=== PATIENT | female | born 1940 | race African-American/Black ===

== ENCOUNTER 2018-12-12 13:46 | Outpatient (CLI) | payer MEDICARE, MEDICAID | END 2018-12-12 13:47 | disposition home or self-care (01) | LOC: ULT 13:46 | PROVIDERS: ATTEND Internal Medicine | DX: R01.1 Cardiac murmur, unspecified (principal); I35.0 Nonrheumatic aortic (valve) stenosis | CPT/HCPCS: 93306 ==

== ENCOUNTER 2019-04-12 12:14 | Inpatient (IN) | payer MEDICARE, MEDICAID ==
[2019-04-12 13:34] LABS: #Eosinphils 0.1 thou/uL (0.0-0.7); #Lymphocytes 2.2 thou/uL (1.20-3.40); #Monocytes 0.6 thou/uL (0.11-0.59); #Neutrophils 6.4 thou/uL (1.40-6.50); %Eosinophils 0.6 % (0.0-10.0); %Lymphocytes 23.5 % (21.0-51.0); %Monocytes 6.2 % (0.0-10.0); %Neutrophils 69.7 % (42.0-75.0); Hemoglobin 10.5 g/dL (12.0-16.0); Mean Corpuscular HGB CONC 32.6 g/dL (32.0-36.0); Mean Corpuscular Hemoglobin 30.1 pg (27.0-31.0); Mean Corpuscular Volume 92.3 fL (78.0-98.0); Mean Platelet Volume 7.9 fL (7.4-10.4); Platelet Count 289 thou/uL (130-400); RBC Distribution Width 13.8 % (11.5-14.5); Red Blood Cell (RBC) Count 3.48 mill/uL (4.20-5.40); White Blood Cell (WBC) Count 9.1 thou/uL (4.8-10.8)
[2019-04-12 13:57] LABS: ALT (SGPT) 10 U/L (8-55); AST (SGOT) 14 U/L (5-34); Albumin 3.6 g/dL (3.4-4.8); Alkaline Phosphatase 76 U/L (40-110); Anion Gap 13 mmol/L (10-20); BUN (Urea Nitrogen) 33 mg/dL (9.8-20.1); Bilirubin, Total 0.3 mg/dL (0.2-1.2); Calc. Creatinine Clearance 0 mL/min (70-130); Calcium 8.9 mg/dL (7.8-10.44); Carbon Dioxide 24 mmol/L (23-31); Chloride 108 mmol/L (98-107); Estimated GFR-MDRD 24; Globulin 3.3 g/dL (2.4-3.5); Glucose 102 mg/dL (83-110); Magnesium 2.2 mg/dL (1.6-2.6); Potassium 3.6 mmol/L (3.5-5.1); Protein, Total 6.9 g/dL (6.0-8.3); Sodium 141 mmol/L (136-145)
--- NOTE | 2019-04-12 14:21 | RAD ---
EXAM: Single view of the chest HISTORY: Cough COMPARISON: 09/08/2016 FINDINGS: Single view of the chest shows an enlarged but stable cardiomediastinal silhouette. Athero sclerotic calcifications in the aorta. There is no evidence of consolidation, mass, or pleural effusion. The bones are unremarkable. IMPRESSION: No evidence of acute cardiopulmonary disease
[2019-04-12 16:56] LABS: Troponin I 0.025 ng/mL (< 0.028)
[2019-04-12 17:14] VITALS: BMI 28.5
[2019-04-12] MEDS ORDERED: Ondansetron ODT 4 MG TAB SL PRN (17:15)
[2019-04-12] MEDS ORDERED: Acetaminophen 325 MG TAB PO PRN (17:15)
[2019-04-12] MEDS ORDERED: Ondansetron PF 4 MG/2 ML Vial IVP PRN (17:15)
[2019-04-12 19:57] LABS: Troponin I 0.013 ng/mL (< 0.028)
[2019-04-13] MEDS ORDERED: Guaifenesin DM 100-10/5 ML UDCUP PO PRN (00:04)
[2019-04-13] MEDS ORDERED: PROVENTIL INHALER 6.7 G (200 INHALATIONS) INH PRN (00:04)
[2019-04-13] MEDS ORDERED: Senokot S 8.6-50 MG TAB PO PRN (00:04)
[2019-04-13] MEDS ORDERED: Ondansetron PF 4 MG/2 ML Vial IVP PRN (00:04)
[2019-04-13] MEDS ORDERED: Bisacodyl 10 MG SUPP PR PRN (00:04)
--- NOTE | 2019-04-13 00:38 | HP ---
REASON FOR ADMISSION: Dizziness, acute kidney injury, bradycardia. HISTORY OF PRESENTING ILLNESS: The patient gives history of feeling very dizzy and she could not ambulate. She tried to take one or two steps, but felt very dizzy and had to sit. She normally uses a walker to ambulate in the house. She stays with her children. No chest pain, palpitation, PND, or orthopnea. No complaints of fever. She has dry cough, but no expectoration. No complaints of urinary symptoms. PAST MEDICAL AND SURGICAL HISTORY: Diastolic dysfunction, last echo done in November of 2018 showed ejection fraction of 55% to 60%; mild aortic stenosis; hypertension; chronic kidney disease stage 3; history of CVA with right hemiparesis; hypertension; ; tubal ligation; dyslipidemia. CURRENT MEDICATIONS: Please note, the patient does not recall all her medications. This needs to be ascertained in the morning from her pharmacy. Per prior records, the patient is on, 1. Allopurinol 100 mg p.o. daily. 2. Norvasc 5 mg p.o. at bedtime. 3. Aspirin 81 mg p.o. daily. 4. Plavix 75 mg p.o. daily. 5. Hydralazine 50 mg three times daily. 6. Isosorbide dinitrate 10 mg three times daily. 7. Lisinopril 10 mg daily. 8. Metoprolol, there are 2 dosings on the computer, one is 150 mg twice daily, another one is 25 mg twice daily. 9. Procardia XL 60 mg twice daily. 10. Crestor 20 mg daily. 11. VESIcare 10 mg daily. 12. Ventolin inhaler q.6 hourly p.r.n. ALLERGIES: NO KNOWN DRUG ALLERGIES. PERSONAL HISTORY: Does not abuse alcohol or drugs. No history of smoking. FAMILY HISTORY: Both parents are . She does not know the exact cause of their parents . CODE STATUS: Full. Power of assistant district attorney is her daughter, Ms. Mayes. REVIEW OF SYSTEMS: CONSTITUTIONAL: Negative for weight loss or gain, ability to conduct usual activities. SKIN: Negative for rash, itching. EYES: Negative for double vision, pain. ENT/MOUTH: Negative for nose bleeding, neck stiffness, pain, tenderness. CARDIOVASCULAR: Negative for palpitations, dyspnea on exertion, orthopnea. RESPIRATORY: Negative for shortness of breath, wheezing, cough, hemoptysis, fever or night sweats. GASTROINTESTINAL: Negative for poor appetite, abdominal pain, heartburn, nausea , vomiting, constipation, or diarrhea. GENITOURINARY: Negative for urgency, frequency, dysuria, nocturia. MUSCULOSKELETAL: Negative for pain, swelling. NEUROLOGIC/PSYCHIATRIC: Negative for anxiety, depression. ALLERGY/IMMUNOLOGIC: Negative for skin rash, bleeding tendency. PHYSICAL EXAMINATION: GENERAL: The patient is a 78-year-old female, who is currently not in any acute distress and is not dizzy at present. VITAL SIGNS: Blood pressure 146/70; pulse 54 per minute, it is dropped down to 38 on telemetry; respiratory rate 20 per minute; temperature 98.4 degrees Fahrenheit; saturating 97% on room air. NECK: Supple. No elevated JVD. HEENT: Eyes; extraocular muscles intact. Pupils reacting to light. Oral cavity, mucous membranes are moist. No exudates or congestion. The patient has no teeth nor does she have any dentures. CARDIOVASCULAR: S1, S2 heard. Bradycardic. No murmur. RESPIRATORY: Air entry 1+ bilateral. No rales or rhonchi. ABDOMEN: Soft. Bowel sounds heard. No tenderness, rigidity, or guarding. EXTREMITIES: Mild peripheral edema. No calf tenderness. VASCULAR: Peripheral pulses 1+ bilateral. No ischemic ulcerations or gangrene. CENTRAL NERVOUS SYSTEM: The patient has chronic right hemiparesis with strength of around 2 to 3/5. She has flexion contracture of her fingers in the right hand. She is able to lift her left lower extremity above the bed to 30 degrees and hold it for at least 10 seconds. No gross focal deficits noted. The patient is alert, awake , and oriented well. PSYCHIATRIC: The patient's mood is euthymic. No hallucinations or delusions. LABORATORY DATA: White count of 9, H and H 10 and 32, platelet count 289, MCV is 92 with 69% neutrophils. Electrolytes are stable. BUN 33, creatinine 2.3. Troponin x3 negative. Liver enzymes within normal limits. Albumin is 3.6. Chest x-ray done shows no acute cardiopulmonary abnormalities. EKG done shows sinus bradycardia at 51 beats per minute. There is Q-wave seen in V1, V2, V3. There is also T inversion seen in V3 to V6, II, III, and aVF as well. CLINICAL IMPRESSION AND PLAN: The patient will be under observation on telemetry for dizziness with acute kidney injury, likely [id number] dehydration. No complaints of diarrhea. She is also bradycardic with pulse going down to 38 per minute on tele monitor. She has EKG changes from V3 to V6, T inversions, and the inferior wall leads as well. In view of EKG changes and bradycardia, we will consult Cardiology. I am not sure if the patient is a candidate for angiogram given her chronic kidney disease and acute kidney injury at present. We will hold off on her Lopressor for now. We will continue Norvasc, aspirin, Plavix, hydralazine, and isosorbide dinitrate for now. She will be gently hydrated with normal saline at 70 mL/hour. Crestor will be continued at 20 mg/hour. The patient does not have any clinical symptoms of chest pain, palpitations, PND, or orthopnea at present. PT evaluation will be requested to ambulate her to see if she is still dizzy on ambulation. Job ID: [id number] [facility]
[2019-04-13] MEDS: Sodium Chloride 0.9% 1,000 ML IV SCH ×2 (02:10→16:49)
[2019-04-13 05:03] LABS: #Eosinphils 0.1 thou/uL (0.0-0.7); #Lymphocytes 2.6 thou/uL (1.20-3.40); #Monocytes 0.6 thou/uL (0.11-0.59); #Neutrophils 3.7 thou/uL (1.40-6.50); %Basophils 0.7 % (0.0-1.0); %Lymphocytes 36.7 % (21.0-51.0); %Monocytes 8.1 % (0.0-10.0); %Neutrophils 53.5 % (42.0-75.0); Mean Corpuscular Hemoglobin 29.7 pg (27.0-31.0); Mean Corpuscular Volume 92.9 fL (78.0-98.0); Mean Platelet Volume 7.8 fL (7.4-10.4); Platelet Count 243 thou/uL (130-400); Red Blood Cell (RBC) Count 3.37 mill/uL (4.20-5.40)
[2019-04-13 05:20] LABS: Albumin 3.4 g/dL (3.4-4.8); Anion Gap 11 mmol/L (10-20); BUN (Urea Nitrogen) 32 mg/dL (9.8-20.1); BUN/Creatinine Ratio 15.69; Calc. Creatinine Clearance 26 mL/min (70-130); Calcium 8.6 mg/dL (7.8-10.44); Carbon Dioxide 24 mmol/L (23-31); Chloride 110 mmol/L (98-107); Estimated GFR-MDRD 29; Glucose 85 mg/dL (83-110); Phosphorus 3.3 mg/dL (2.3-4.7); Potassium 3.2 mmol/L (3.5-5.1); Sodium 142 mmol/L (136-145)
[2019-04-13] MEDS: hydrALAZINE 25 MG TAB PO SCH ×3 (06:07→20:04)
[2019-04-13] MEDS ORDERED: Prevnar 13-Val Conj/PF 0.5 ML SYRINGE IM ONE (09:00)
[2019-04-13] MEDS: Isosorbide Dinitrate 5 MG TAB PO SCH ×3 (09:01→20:03)
[2019-04-13] MEDS: Clopidogrel Bisulfate 75 MG TAB PO SCH (09:01)
[2019-04-13] MEDS: Trospium 20 MG TAB PO SCH (09:01)
[2019-04-13] MEDS: Aspirin Chewable 81 MG TAB PO SCH (09:01)
[2019-04-13] MEDS: Allopurinol 100 MG TAB PO SCH (09:01)
[2019-04-13] MEDS: Enoxaparin Sodium 30 MG/0.3 ML SYRINGE SC SCH (09:01)
[2019-04-13] MEDS: Rosuvastatin 20 MG TAB PO SCH (09:01)
--- NOTE | 2019-04-13 13:36 | CON ---
DATE OF CONSULTATION: REASON FOR CONSULTATION: Dizziness, lightheadedness, and syncope. PRIMARY ASSISTANT AT SURGERY: Christian Rosado MD HISTORY OF PRESENT ILLNESS: Ms. Higuera is a 78-year-old woman with past history of chronic kidney disease, who recently presented with loss of consciousness. The history was obtained from her daughter. She does have underlying dementia. Her daughter states she was in her normal state of health when she began staring off. She states she was foaming at the mouth and her eyes rolled back. She thought she was having another stroke. She had difficulty getting words out. She then pressed the button around her neck. She then slowly came to. EMS was summoned and brought the patient to the emergency room. The daughter states she has also had increased shortness of breath present. No chest pain, pressure, or other associated symptoms. PAST MEDICAL HISTORY: Diastolic dysfunction, mild aortic stenosis, hypertension, chronic kidney disease, CVA, hypertension, BTL, and hyperlipidemia. HOME MEDICATIONS: Include: 1. Allopurinol. 2. Norvasc. 3. Aspirin. 4. Plavix. 5. Hydralazine. 6. Isosorbide. 7. Lisinopril. 8. Metoprolol 150 mg b.i.d. 9. Procardia XL 60 b.i.d. 10. Crestor. 11. VESIcare. ALLERGIES: NONE. FAMILY HISTORY: Negative for CAD. REVIEW OF SYSTEMS: Ten-point review of systems is reviewed and as above, otherwise negative. PHYSICAL EXAMINATION: GENERAL: Patient is a pleasant 78-year-old woman, difficulty with history from the patient. She easily gets confused. VITAL SIGNS: Blood pressure 135/80, pulse 66, and temperature 97.4. NEUROLOGIC: The patient is alert and oriented x3 with no focal neurologic deficits. HEENT: Sclerae without icterus. Mouth has moist mucous membranes with normal pallor. NECK: No JVD. Carotid upstroke brisk. No bruits bilaterally. LUNGS: Clear to auscultation with unlabored respirations. BACK: No scoliosis or kyphosis. CARDIAC: Regular rate and rhythm with normal S1 and S2. No S3 or S4 noted. No significant rubs, murmurs, thrills, or gallops noted throughout the precordium. PMI is not displaced. There is no parasternal heave. ABDOMEN: Soft, nontender, nondistended. No peritoneal signs present. No hepatosplenomegaly. No abnormal striae. EXTREMITIES: 2+ femoral and 2+ dorsalis pedis pulses. No cyanosis, clubbing, or edema. SKIN: No gross abnormalities. PERTINENT LABORATORY DATA: Troponin negative. EKG shows normal sinus rhythm with inverted T-waves. Initial creatinine 2.34, down to 2.04. IMPRESSION: 1. Syncope and loss of consciousness. 2. Bradycardia. 3. Chronic kidney disease. 4. Shortness of breath. RECOMMENDATIONS: The patient's symptoms may be related to bradycardia. The patient was on a high dose of metoprolol. This has been discontinued. Heart rate has been stable. Her CKs and troponins have been negative. She does have EKG changes and we will need to compare to old EKG. I would like to monitor overnight. We would recommend echo with Doppler to reassess LVEF. Job ID: [id number]
[2019-04-13] MEDS ORDERED: Potassium Chloride 20 MEQ TAB PO SCH (15:45)
--- NOTE | 2019-04-13 15:48 | PRG ---
DATE OF SERVICE: 04/13/2019 SUBJECTIVE: The patient is seen and examined at the bedside. The patient's daughter is present in the room during my visit. The whole information is taken from both the patient and the daughter about the event which happened at home. OBJECTIVE: VITAL SIGNS: Blood pressure is 177/85, pulse is 66, respiratory rate is 20. HEENT: Head is atraumatic and normocephalic. Eyes are PERRLA. Sclerae are nonicteric. Conjunctivae are pinkish. Oral mucosa is moist. She is edentulous. LUNGS: Bilateral rales and some wheezes present. HEART: S1, S2 normal. There is a systolic murmur at the right sternal border 2 to 3/6. ABDOMEN: Soft, nontender, nondistended. Obese. EXTREMITIES: Trace of peripheral edema similar bilaterally on both lower extremities. NEUROLOGIC: She is an alert and oriented x2. She has some motor deficit especially in the right lower extremity from the previous stroke, which is 4/5 and very residual deficit in the right upper extremity, which is almost the same as the left side. LABORATORY DATA: Labs showed white count of 7.0, hemoglobin 10.0, hematocrit 31.3, platelet count is 243,000. Sodium of 142, potassium 3.2, chloride 110, CO2 of 24 BUN 32, creatinine 2.04. IMPRESSION: 1. Syncope versus seizure. 2. Bradycardia most likely related to her home beta-demond use. 3. Renal insufficiency which is acute on chronic. 4. Hypokalemia. 5. Diastolic dysfunction. 6. Hypertension. 7. History of cerebrovascular accident with residual right hemiparesis. 8. Dyslipidemia. PLAN: Increase amlodipine to 10 mg at bedtime since her lisinopril was stopped and beta-demond was stopped. She had a viral illness of her upper respiratory tract a couple of weeks ago and she started wheezing and coughing, so we will keep her on DuoNebs 4 times a day and keep her on guaifenesin q.4 hours scheduled. Her renal insufficiency improved. Her creatinine is down to 2.04 from 2.34 yesterday. Also, she has normocytic anemia, which is chronic. Cardiology is going to make decision about further recommendations. We will get echocardiogram on her and continue PT and follow her anemia and kidney function levels. Job ID: [id number]
[2019-04-13] MEDS: Guaifenesin DM 100-10/5 ML UDCUP PO SCH ×3 (16:47→23:12)
[2019-04-13] MEDS: PROVENTIL INHALER 6.7 G (200 INHALATIONS) INH SCH ×2 (19:29→19:41)
[2019-04-13] MEDS ORDERED: Amlodipine 5 MG TAB PO SCH (21:00)
[2019-04-13] MEDS ORDERED: Amlodipine 10 MG TAB PO SCH (21:00)
[2019-04-14] MEDS: Guaifenesin DM 100-10/5 ML UDCUP PO SCH ×5 (04:22→21:00)
[2019-04-14 04:52] LABS: #Eosinphils 0.1 thou/uL (0.0-0.7); #Lymphocytes 2.6 thou/uL (1.20-3.40); #Monocytes 0.4 thou/uL (0.11-0.59); #Neutrophils 4.6 thou/uL (1.40-6.50); %Basophils 0.2 % (0.0-1.0); %Lymphocytes 33.5 % (21.0-51.0); %Monocytes 5.8 % (0.0-10.0); %Neutrophils 59.5 % (42.0-75.0); Hemoglobin 9.3 g/dL (12.0-16.0); Mean Corpuscular HGB CONC 31.8 g/dL (32.0-36.0); Mean Corpuscular Hemoglobin 29.4 pg (27.0-31.0); Mean Corpuscular Volume 92.5 fL (78.0-98.0); Mean Platelet Volume 7.4 fL (7.4-10.4); Platelet Count 228 thou/uL (130-400); Red Blood Cell (RBC) Count 3.17 mill/uL (4.20-5.40); White Blood Cell (WBC) Count 7.7 thou/uL (4.8-10.8)
[2019-04-14 05:12] LABS: Anion Gap 10 mmol/L (10-20); BUN (Urea Nitrogen) 24 mg/dL (9.8-20.1); Calc. Creatinine Clearance 29 mL/min (70-130); Calcium 8.5 mg/dL (7.8-10.44); Carbon Dioxide 21 mmol/L (23-31); Chloride 110 mmol/L (98-107); Estimated GFR-MDRD 32; Glucose 114 mg/dL (83-110); Potassium 3.4 mmol/L (3.5-5.1); Sodium 138 mmol/L (136-145)
[2019-04-14] MEDS: Trospium 20 MG TAB PO SCH (08:51)
[2019-04-14] MEDS: hydrALAZINE 25 MG TAB PO SCH ×3 (08:51→20:57)
[2019-04-14] MEDS: Enoxaparin Sodium 30 MG/0.3 ML SYRINGE SC SCH (08:51)
[2019-04-14] MEDS: Allopurinol 100 MG TAB PO SCH (08:51)
[2019-04-14] MEDS: Rosuvastatin 20 MG TAB PO SCH (08:51)
[2019-04-14] MEDS: Clopidogrel Bisulfate 75 MG TAB PO SCH (08:51)
[2019-04-14] MEDS: Isosorbide Dinitrate 5 MG TAB PO SCH ×3 (08:51→20:57)
[2019-04-14] MEDS: Aspirin Chewable 81 MG TAB PO SCH (08:52)
[2019-04-14] MEDS ORDERED: Amlodipine 5 MG TAB PO SCH (09:15)
--- NOTE | 2019-04-14 09:21 | PDOC.HOSPP ---
- Subjective Encounter Date: 04/14/19 Encounter Time: 09:18 Subjective: I'm scared to get up - Objective Vital Signs & Weight: Vital Signs (12 hours) Temp Pulse Resp BP BP BP BP 04/14/19 08:51 78 04/14/19 08:00 98.7 F 78 18 188/87 H 197/88 H 04/14/19 04:20 98.9 F 77 18 167/79 H 04/13/19 23:10 99.1 F 75 17 161/74 H BP Pulse Ox 04/14/19 08:51 04/14/19 08:00 201/93 H 98 04/14/19 04:20 98 04/13/19 23:10 95 Weight Weight 156 lb 6.4 oz I&O: 04/13/19 04/14/19 04/15/19 06:59 06:59 06:59 Intake Total 480 2140 Output Total 450 1300 Balance 30 840 Result Diagrams: 04/14/19 04:43 04/14/19 04:43 Hospitalist ROS - Medication Medications: Active Medications Generic Name Dose Route Start Last Admin Trade Name Juanq PRN Reason Stop Dose Admin Allopurinol 100 mg 04/13/19 09:00 04/14/19 08:51 Zyloprim PO 100 mg DAILY SENA Administration Aspirin 81 mg 04/13/19 09:00 04/14/19 08:52 Aspirin Chewable PO 81 mg DAILY SENA Administration Clopidogrel Bisulfate 75 mg 04/13/19 09:00 04/14/19 08:51 Plavix PO 75 mg DAILY SENA Administration Enoxaparin Sodium 30 mg 04/13/19 09:00 04/14/19 08:51 Lovenox SC 30 mg 0900 SENA Administration Guaifenesin/Dextromethorphan 15 ml 04/13/19 17:00 04/14/19 08:49 Robitussin Dm PO 15 ml Q4HR SENA Administration Hydralazine HCl 50 mg 04/13/19 09:00 04/14/19 08:51 Apresoline PO 50 mg TID SENA Administration Isosorbide Dinitrate 10 mg 04/13/19 09:00 04/14/19 08:51 Isordil PO 10 mg TID SENA Administration Rosuvastatin Calcium 20 mg 04/13/19 09:00 04/14/19 08:51 Crestor PO 20 mg DAILY SENA Administration Trospium 20 mg 04/13/19 09:00 04/14/19 08:51 Trospium PO 20 mg DAILY SENA Administration - Exam General Appearance: awake alert Neck: no JVD Heart: RRR, II/IV Respiratory - other findings: expiratory wheeZes, mild Gastrointestinal: soft, non-tender, normal bowel sounds Extremities: no edema Neurological - other findings: dense R hemiplegia, uses walker Hosp A/P (1) Dizziness Code(s): R42 - DIZZINESS AND GIDDINESS Status: Acute (2) Hypertension, uncontrolled Code(s): I10 - ESSENTIAL (PRIMARY) HYPERTENSION Status: Acute (3) CKD (chronic kidney disease) stage 3, GFR 30-59 ml/min Code(s): N18.3 - CHRONIC KIDNEY DISEASE, STAGE 3 (MODERATE) Status: Acute (4) Bradycardia Code(s): R00.1 - BRADYCARDIA, UNSPECIFIED Status: Acute - Plan cont off b-demond renaal fcn stable, reinstitute lisinopruil start aamlodipine supie, erect BPs ECHOcardiagram
[2019-04-14] MEDS: NIFEdipine XL 30 MG TAB PO SCH ×2 (09:48→20:58)
[2019-04-14] MEDS: Acetaminophen 325 MG TAB PO PRN ×2 (09:53→18:20)
[2019-04-14] MEDS: PROVENTIL INHALER 6.7 G (200 INHALATIONS) INH SCH ×3 (10:49→20:25)
[2019-04-15] MEDS: Guaifenesin DM 100-10/5 ML UDCUP PO SCH ×4 (01:20→13:25)
[2019-04-15] MEDS: PROVENTIL INHALER 6.7 G (200 INHALATIONS) INH SCH ×2 (07:35→11:04)
[2019-04-15 08:02] VITALS: TEMP 98.2
--- NOTE | 2019-04-15 08:05 | PDOC.HOSPP ---
- Subjective Encounter Date: 04/15/19 Encounter Time: 07:59 Subjective: no dizziness, sob, etc - Objective Vital Signs & Weight: Vital Signs (12 hours) Temp Pulse Resp BP BP BP Pulse Ox 04/15/19 04:00 98.5 F 96 16 153/73 H 95 04/14/19 20:58 95 154/75 H 04/14/19 20:57 95 154/75 H 04/14/19 20:00 99.1 F 103 H 18 176/72 H 96 Weight Weight 156 lb 6.4 oz I&O: 04/14/19 04/15/19 04/16/19 06:59 06:59 06:59 Intake Total 2140 2300 Output Total 1300 1800 Balance 840 500 Result Diagrams: 04/14/19 04:43 04/14/19 04:43 Hospitalist ROS - Medication Medications: Active Medications Generic Name Dose Route Start Last Admin Trade Name Freq PRN Reason Stop Dose Admin Acetaminophen 650 mg 04/13/19 00:04 04/14/19 18:20 Tylenol PO 650 mg Q4H PRN Administration Headache/Fever/Mild Pain (1-3) Albuterol Sulfate 2 puff 04/14/19 11:00 04/15/19 07:35 Proventil Hfa INH 1 puff QID-RT SENA Administration Allopurinol 100 mg 04/13/19 09:00 04/14/19 08:51 Zyloprim PO 100 mg DAILY SENA Administration Aspirin 81 mg 04/13/19 09:00 04/14/19 08:52 Aspirin Chewable PO 81 mg DAILY SENA Administration Clopidogrel Bisulfate 75 mg 04/13/19 09:00 04/14/19 08:51 Plavix PO 75 mg DAILY SENA Administration Enoxaparin Sodium 30 mg 04/13/19 09:00 04/14/19 08:51 Lovenox SC 30 mg 0900 SENA Administration Guaifenesin/Dextromethorphan 15 ml 04/13/19 17:00 04/15/19 05:17 Robitussin Dm PO 15 ml Q4HR SENA Administration Hydralazine HCl 50 mg 04/13/19 09:00 04/14/19 20:57 Apresoline PO 50 mg TID SENA Administration Isosorbide Dinitrate 10 mg 04/13/19 09:00 04/14/19 20:57 Isordil PO 10 mg TID SENA Administration Nifedipine 30 mg 04/14/19 09:00 04/14/19 20:58 Procardia Xl PO 30 mg BID SENA Administration Rosuvastatin Calcium 20 mg 04/13/19 09:00 04/14/19 08:51 Crestor PO 20 mg DAILY SENA Administration Trospium 20 mg 04/13/19 09:00 04/14/19 08:51 Trospium PO 20 mg DAILY SENA Administration - Exam General Appearance: awake alert Neck: no JVD Heart: RRR, no murmur Respiratory: CTAB Gastrointestinal: soft, normal bowel sounds Extremities: no edema Hosp A/P (1) Dizziness Code(s): R42 - DIZZINESS AND GIDDINESS Status: Resolved (2) Hypertension, uncontrolled Code(s): I10 - ESSENTIAL (PRIMARY) HYPERTENSION Status: Chronic (3) CKD (chronic kidney disease) stage 3, GFR 30-59 ml/min Code(s): N18.3 - CHRONIC KIDNEY DISEASE, STAGE 3 (MODERATE) Status: Chronic (4) Bradycardia Code(s): R00.1 - BRADYCARDIA, UNSPECIFIED Status: Resolved - Plan discuss with cardiology probable DC
[2019-04-15] MEDS ORDERED: Lisinopril 10 MG TAB PO SCH (09:00)
[2019-04-15] MEDS: Allopurinol 100 MG TAB PO SCH (09:19)
[2019-04-15] MEDS: Isosorbide Dinitrate 5 MG TAB PO SCH (09:20)
[2019-04-15] MEDS: Aspirin Chewable 81 MG TAB PO SCH (09:20)
[2019-04-15] MEDS: Clopidogrel Bisulfate 75 MG TAB PO SCH (09:20)
[2019-04-15] MEDS: Enoxaparin Sodium 30 MG/0.3 ML SYRINGE SC SCH (09:20)
[2019-04-15] MEDS: hydrALAZINE 25 MG TAB PO SCH (09:20)
[2019-04-15] MEDS: Rosuvastatin 20 MG TAB PO SCH (09:21)
[2019-04-15] MEDS: Trospium 20 MG TAB PO SCH (09:21)
[2019-04-15] MEDS: NIFEdipine XL 30 MG TAB PO SCH (09:21)
[2019-04-15 13:51] VITALS: BP 131/66
--- NOTE | 2019-04-16 03:42 | DIS ---
DATE OF ADMISSION: 04/14/2019 DATE OF DISCHARGE: 04/15/2019 PRIMARY CARE PROVIDER: Júnior Resendiz MD DISPOSITION: Discharged to home. FINAL DIAGNOSES: 1. Dizziness. 2. Sinus bradycardia related to beta blockers. 3. Chronic kidney disease, stage 3. 4. Hypertension. 5. Dyslipidemia. DISCHARGE MEDICATIONS: 1. VESIcare 10 mg a day. 2. Ventolin inhaler one puff p.r.n. 3. Crestor 20 mg a day. 4. Allopurinol 100 mg a day. 5. Lisinopril 10 mg a day. 6. Plavix 75 mg a day. 7. Isosorbide 10 mg t.i.d. 8. Hydralazine 50 mg p.o. t.i.d. 9. Aspirin 81 mg a day. 10. Nifedipine 30 mg p.o. b.i.d. ALLERGIES: NO KNOWN DRUG ALLERGIES. MEDICATIONS HELD: 1. Metoprolol 150 p.o. b.i.d. 2. Norvasc. CODE STATUS: Full resuscitation. DIET: Heart healthy. PENDING AT TIME OF DISCHARGE: Nothing. HOSPITAL COURSE: The patient admitted to [facility] with dizziness and bradycardia. The patient was on high doses of metoprolol, this was stopped. Cardiology consultation was obtained with Dr. Matt Barker, vector control assistant for Dr. Christian Rosado. The patient's bradycardia and dizziness resolved without further intervention. Echocardiogram was done, which revealed a 50% to 55% EF. PERTINENT LABORATORY DATA: CBC; white count 9.1, hemoglobin 10.5, and platelet count 289,000. Initial creatinine 2.34 and final 1.85 consistent with chronic kidney disease, stage 3, borderline for stage 4. Sodium 141, final 138. Potassium 3.6, final 3.4. PHYSICAL EXAMINATION: The patient's vital signs at time of discharge; blood pressure 151/80, pulse 90, and respirations 24. DISCHARGE INSTRUCTIONS: She is being discharged for followup with Dr. Resendiz in [address] Rosado is willing to see her in followup if desired. Pertinent information about this patient other than dealing with the present illness is the presence of a remote stroke with a right severe hemiplegia. Job ID: [id number]
--- NOTE | 2019-04-16 05:40 | PQF ---
MARC TA, ALEKNAGIK Esperanza FITCH [id number] [facility]-241 [id number] CLINICAL DOCUMENTATION CLARIFICATION FORM: POST DISCHARGE Addendum to original discharge summary date: ____ Late entry note date: __ DATE: 04/16/2019 ATTN: Dr Rodriguez, [place] Please exercise your independent, professional judgment in responding to the clarification form. Clinical indicators are provided on the bottom of this form for your review In your clinical opinion based on clinical findings below, can you plesae specify condition as the reason for Inpatient admission if due to: Please check appropriate box(s): [ ] ESSIE [ ] Bradycardia due to Overdose of Metropolol [ x ] Bradycardia due to adverse effect of Metropolol [ ] Other diagnosis [ ] Unable to determine In addition, please specify: Present on Admission (POA): [x ] Yes [ ] No [ ] Unable to determine For continuity of documentation, please document condition throughout progress notes and discharge summary. Thank You. CLINICAL INDICATORS - SIGNS / SYMPTOMS / LABS Laboratory chemistry 04/12 BUN 33, Creatinine 2.34 H&P p1 04/12 Dr Emerson The patient gives history of feeling very dizzy and she could not ambulate H&P p1 04/12 Dr Emerson She tried to take one or two steps, but felt dizzy and had to sit H&P p3 04/12 Dr Soler patient will be under observation on telemetry for dizziness with acute kidney injurt likely [id number] dehydration H&P p3 04/12 Dr Emerson She is also bradycardic with pulse going down to 38 per minute RISK FACTORS H&P p1 04/12 - Hypertension H&P p1 04/12 - CKD 3 H&P p1 04/12 - history of CVA PN p1 04/13 Bradycardia related to high dose beta-demond use TREATMENTS: H&P p3 04/12 Gently hydration with normal saline at 70ml.hr H&P p3 04/12 will hold off on her beta-demond (This form is maintained as a part of the permanent medical record) 2014 [employer], [employer]. All Rights Reserved [email or web address]
== END 2019-04-15 15:27 | disposition home or self-care (01) | DRG 309 ==
LOC: ERS 12:14 → 2SW 15:33 → OBSVTOIN 04-14 11:36
PROVIDERS: ADMIT Internal Medicine; ATTEND Internal Medicine
DX: R00.1 Bradycardia, unspecified (principal); N17.9 Acute kidney failure, unspecified; I69.351 Hemiplegia and hemiparesis following cerebral infarction affecting right dominant side; E86.0 Dehydration; N18.3 Chronic kidney disease, stage 3 (moderate); I12.9 Hypertensive chronic kidney disease with stage 1 through stage 4 chronic kidney disease, or unspecified chronic kidney disease; F03.90 Unspecified dementia, unspecified severity, without behavioral disturbance, psychotic disturbance, mood disturbance, and anxiety; E78.5 Hyperlipidemia, unspecified; D63.1 Anemia in chronic kidney disease; R42 Dizziness and giddiness; T44.7X5A Adverse effect of beta-adrenoreceptor antagonists, initial encounter; Z79.899 Other long term (current) drug therapy; Z79.82 Long term (current) use of aspirin; Z79.02 Long term (current) use of antithrombotics/antiplatelets
CPT/HCPCS: 36415; 36416; 71045; 80048; 80053; 80069; 83735; 84484; 85025; 93005; 93306; 94640; J1650; J7620

== ENCOUNTER 2020-09-14 08:36 | Inpatient (IN) | payer MEDICARE, MEDICAID ==
[2020-09-14] MEDS ORDERED: Iopamidol-370 76% 500 ML 1 ML ONE (09:29)
[2020-09-14 09:35] LABS: #Basophils 0.1 thou/uL (0.0-0.2); #Eosinphils 0.1 thou/uL (0.0-0.7); #Lymphocytes 2.3 thou/uL (1.20-3.40); #Monocytes 0.5 thou/uL (0.11-0.59); #Neutrophils 4.3 thou/uL (1.40-6.50); %Basophils 1.2 % (0.0-1.0); %Eosinophils 1.9 % (0.0-10.0); %Lymphocytes 31.3 % (21.0-51.0); %Monocytes 6.6 % (0.0-10.0); Hemoglobin 10.5 g/dL (12.0-16.0); Mean Corpuscular HGB CONC 32.2 g/dL (32.0-36.0); Mean Corpuscular Hemoglobin 31.3 pg (27.0-31.0); Mean Corpuscular Volume 97.2 fL (78.0-98.0); Mean Platelet Volume 7.7 fL (7.4-10.4); Platelet Count 341 thou/uL (130-400); RBC Distribution Width 14.2 % (11.5-14.5); Red Blood Cell (RBC) Count 3.36 mill/uL (4.20-5.40); White Blood Cell (WBC) Count 7.2 thou/uL (4.8-10.8)
[2020-09-14 09:56] LABS: ALT (SGPT) 8 U/L (8-55); AST (SGOT) 16 U/L (5-34); Albumin 4.3 g/dL (3.4-4.8); Alkaline Phosphatase 77 U/L (40-110); Anion Gap 18 mmol/L (10-20); BUN (Urea Nitrogen) 28 mg/dL (9.8-20.1); Bilirubin, Total 0.3 mg/dL (0.2-1.2); Calc. Creatinine Clearance 0 mL/min (70-130); Calcium 10.3 mg/dL (7.8-10.44); Carbon Dioxide 15 mmol/L (23-31); Chloride 110 mmol/L (98-107); Globulin 3.7 g/dL (2.4-3.5); Glucose 79 mg/dL (83-110); Potassium 4.1 mmol/L (3.5-5.1); Sodium 139 mmol/L (136-145)
[2020-09-14 13:13] LABS: Troponin I Less than 0.010 ng/mL (< 0.028)
[2020-09-14] MEDS ORDERED: Nitroglycerin 0.4 MG TAB (25 Tab Bottle) SL PRN (15:44)
[2020-09-14] MEDS ORDERED: Ondansetron ODT 4 MG TAB PO PRN (15:44)
[2020-09-14] MEDS ORDERED: Ondansetron PF 4 MG/2 ML Vial IVP PRN (15:44)
[2020-09-14] MEDS ORDERED: hydrALAZINE 20 MG/ML VIAL SLOW IVP PRN (15:44)
[2020-09-14 16:03] LABS: Troponin I Less than 0.010 ng/mL (< 0.028)
[2020-09-14] MEDS: Famotidine 20 MG TAB PO SCH (20:18)
[2020-09-14] MEDS: hydrALAZINE 25 MG TAB PO SCH (20:19)
[2020-09-14] MEDS: NIFEdipine XL 30 MG TAB PO SCH (20:22)
[2020-09-14] MEDS: Isosorbide Dinitrate 5 MG TAB PO SCH (20:22)
[2020-09-14] MEDS: Rosuvastatin 20 MG TAB PO SCH (20:22)
[2020-09-14] MEDS: Trospium 20 MG TAB PO SCH (20:23)
[2020-09-15 05:19] LABS: #Basophils 0.1 thou/uL (0.0-0.2); #Eosinphils 0.2 thou/uL (0.0-0.7); #Lymphocytes 2.1 thou/uL (1.20-3.40); #Monocytes 0.6 thou/uL (0.11-0.59); #Neutrophils 4.5 thou/uL (1.40-6.50); %Basophils 0.7 % (0.0-1.0); %Eosinophils 2.3 % (0.0-10.0); %Lymphocytes 28.5 % (21.0-51.0); %Monocytes 8.3 % (0.0-10.0); %Neutrophils 60.2 % (42.0-75.0); Hemoglobin 10.2 g/dL (12.0-16.0); Mean Corpuscular HGB CONC 33.7 g/dL (32.0-36.0); Mean Corpuscular Hemoglobin 32.3 pg (27.0-31.0); Mean Corpuscular Volume 95.8 fL (78.0-98.0); Mean Platelet Volume 6.9 fL (7.4-10.4); Platelet Count 302 thou/uL (130-400); RBC Distribution Width 13.9 % (11.5-14.5); Red Blood Cell (RBC) Count 3.15 mill/uL (4.20-5.40); White Blood Cell (WBC) Count 7.5 thou/uL (4.8-10.8)
[2020-09-15 05:43] LABS: ALT (SGPT) 8 U/L (8-55); AST (SGOT) 12 U/L (5-34); Alkaline Phosphatase 70 U/L (40-110); Anion Gap 15 mmol/L (10-20); BUN (Urea Nitrogen) 30 mg/dL (9.8-20.1); Bilirubin, Total 0.3 mg/dL (0.2-1.2); Calc. Creatinine Clearance 25 mL/min (70-130); Carbon Dioxide 17 mmol/L (23-31); Cardiac Risk 3.4 (Less than 4.5); Chloride 106 mmol/L (98-107); Cholesterol 185 mg/dl (< 200 Desired); Globulin 3.3 g/dL (2.4-3.5); Glucose 78 mg/dL (83-110); HDL Cholesterol 55 mg/dL (>60 Neg Risk); LDL Cholesterol, Calculated 108 mg/dL; Protein, Total 7.3 g/dL (5.8-8.1); Sodium 134 mmol/L (136-145); Triglycerides 110 mg/dL (Less than 150)
[2020-09-15] MEDS ORDERED: Bisacodyl 5 MG TAB PO PRN (07:43)
[2020-09-15] MEDS ORDERED: Loratadine 10 MG TAB PO PRN (07:43)
[2020-09-15] MEDS ORDERED: Loperamide HCl 2 MG CAP PO PRN (07:43)
[2020-09-15] MEDS ORDERED: Cepastat Lozenges 1 LOZ PO PRN (07:43)
[2020-09-15] MEDS ORDERED: Zolpidem Tartrate 5 MG TAB PO PRN (07:43)
[2020-09-15] MEDS ORDERED: Senokot S 8.6-50 MG TAB PO PRN (07:43)
[2020-09-15] MEDS ORDERED: Sodium Chloride 0.65% Nasal 44 ML BOT EA NARE PRN (07:43)
[2020-09-15] MEDS ORDERED: Calcium Carbonate 500 MG ChewTAB PO PRN (07:43)
[2020-09-15] MEDS ORDERED: GUAIFENESIN SF SOLN 200 MG/10 ML UDCUP PO PRN (07:43)
[2020-09-15] MEDS ORDERED: Morphine 2 MG/ML VIAL SLOW IVP PRN (07:59)
[2020-09-15] MEDS: Aspirin Chewable 81 MG TAB PO SCH (08:55)
[2020-09-15] MEDS: Clopidogrel Bisulfate 75 MG TAB PO SCH (08:55)
[2020-09-15] MEDS: Allopurinol 100 MG TAB PO SCH (08:56)
[2020-09-15] MEDS: Trospium 20 MG TAB PO SCH ×2 (08:56→21:39)
[2020-09-15] MEDS: Famotidine 20 MG TAB PO SCH (08:56)
[2020-09-15] MEDS: NIFEdipine XL 30 MG TAB PO SCH ×2 (08:57→21:40)
[2020-09-15] MEDS: hydrALAZINE 25 MG TAB PO SCH ×3 (12:00→21:40)
[2020-09-15] MEDS: Isosorbide Dinitrate 5 MG TAB PO SCH ×3 (12:00→21:40)
[2020-09-15] MEDS: Lisinopril 10 MG TAB PO SCH (12:00)
[2020-09-15 12:12] LABS: Bilirubin Negative (Negative); Blood, Urine Negative (Negative); Clarity Turbid (Clear); Glucose, Urine (Dipstick) Normal (Negative); Ketone, Urine Negative (Negative); Leukocyte 500 Leu/uL (Negative); Nitrite Negative (Negative); Protein, Urine (Dipstick) 20 mg/dL (Neg-Trace); Specific Gravity, Urine 1.018 (1.002-1.036); Urobilinogen Normal mg/dL (Less than 2); WBC/HPF 21-50 HPF (0-3); pH, Urine 6.5 (5.0-9.0)
[2020-09-15 12:23] LABS: Bacteria/HPF 1+ HPF (None Seen); Urine Culture Reflex No No
[2020-09-15] MEDS: cefTRIAXone\\ROCEPHIN 1 GM in Sodium Chloride 0.9% 100 ML IVPB SCH (14:20)
[2020-09-15] MEDS: Phenazopyridine HCl 100 MG TAB PO SCH (18:03)
[2020-09-15] MEDS: Rosuvastatin 20 MG TAB PO SCH (21:40)
[2020-09-16] MEDS ORDERED: Bisacodyl 10 MG SUPP PR SCH (08:00)
[2020-09-16] MEDS: Trospium 20 MG TAB PO SCH ×2 (09:06→20:34)
[2020-09-16] MEDS: Phenazopyridine HCl 100 MG TAB PO SCH ×3 (09:07→16:21)
[2020-09-16] MEDS: Clopidogrel Bisulfate 75 MG TAB PO SCH (09:14)
[2020-09-16] MEDS: Allopurinol 100 MG TAB PO SCH (09:14)
[2020-09-16] MEDS: Lisinopril 10 MG TAB PO SCH (09:14)
[2020-09-16] MEDS: Aspirin Chewable 81 MG TAB PO SCH (09:14)
[2020-09-16] MEDS: Famotidine 20 MG TAB PO SCH (09:15)
[2020-09-16] MEDS: hydrALAZINE 25 MG TAB PO SCH ×3 (09:16→20:32)
[2020-09-16] MEDS: NIFEdipine XL 30 MG TAB PO SCH ×2 (09:17→20:33)
[2020-09-16] MEDS: Isosorbide Dinitrate 5 MG TAB PO SCH ×3 (09:17→20:32)
[2020-09-16] MEDS: cefTRIAXone\\ROCEPHIN 1 GM in Sodium Chloride 0.9% 100 ML IVPB SCH (16:21)
[2020-09-16] MEDS: Rosuvastatin 20 MG TAB PO SCH (20:34)
[2020-09-17] MEDS: Acetaminophen 500 MG TAB PO PRN (03:44)
[2020-09-17] MEDS ORDERED: ADENOSINE 60 MG/20 ML VIAL ONE (09:14)
[2020-09-17] MEDS: Allopurinol 100 MG TAB PO SCH (12:11)
[2020-09-17] MEDS: Aspirin Chewable 81 MG TAB PO SCH (12:11)
[2020-09-17] MEDS: Clopidogrel Bisulfate 75 MG TAB PO SCH (12:12)
[2020-09-17] MEDS: Famotidine 20 MG TAB PO SCH (12:12)
[2020-09-17] MEDS: hydrALAZINE 25 MG TAB PO SCH ×3 (12:13→20:55)
[2020-09-17] MEDS: Isosorbide Dinitrate 5 MG TAB PO SCH ×3 (12:14→20:54)
[2020-09-17] MEDS: NIFEdipine XL 30 MG TAB PO SCH ×2 (12:15→20:54)
[2020-09-17] MEDS: Lisinopril 10 MG TAB PO SCH (12:15)
[2020-09-17] MEDS: Phenazopyridine HCl 100 MG TAB PO SCH ×3 (12:16→18:14)
[2020-09-17] MEDS: Trospium 20 MG TAB PO SCH ×2 (12:17→20:55)
[2020-09-17 12:47] LABS: #Eosinphils 0.3 thou/uL (0.0-0.7); #Lymphocytes 1.9 thou/uL (1.20-3.40); #Monocytes 0.7 thou/uL (0.11-0.59); #Neutrophils 5.6 thou/uL (1.40-6.50); %Basophils 0.2 % (0.0-1.0); %Eosinophils 3.6 % (0.0-10.0); %Lymphocytes 22.2 % (21.0-51.0); %Monocytes 7.7 % (0.0-10.0); %Neutrophils 66.3 % (42.0-75.0); Hemoglobin 10.7 g/dL (12.0-16.0); Mean Corpuscular HGB CONC 32.2 g/dL (32.0-36.0); Mean Corpuscular Hemoglobin 31.2 pg (27.0-31.0); Mean Platelet Volume 7.1 fL (7.4-10.4); Platelet Count 328 thou/uL (130-400); RBC Distribution Width 14.2 % (11.5-14.5); Red Blood Cell (RBC) Count 3.42 mill/uL (4.20-5.40); White Blood Cell (WBC) Count 8.5 thou/uL (4.8-10.8)
[2020-09-17 13:05] LABS: Anion Gap 16 mmol/L (10-20); BUN (Urea Nitrogen) 29 mg/dL (9.8-20.1); Calc. Creatinine Clearance 18 mL/min (70-130); Calcium 10.1 mg/dL (7.8-10.44); Carbon Dioxide 18 mmol/L (23-31); Chloride 107 mmol/L (98-107); Glucose 98 mg/dL (83-110); Potassium 3.9 mmol/L (3.5-5.1); Sodium 137 mmol/L (136-145)
[2020-09-17] MEDS: cefTRIAXone\\ROCEPHIN 1 GM in Sodium Chloride 0.9% 100 ML IVPB SCH (16:49)
[2020-09-17] MEDS: Rosuvastatin 20 MG TAB PO SCH (20:56)
[2020-09-18] MEDS: Famotidine 20 MG TAB PO SCH (08:43)
[2020-09-18] MEDS: Allopurinol 100 MG TAB PO SCH (08:43)
[2020-09-18] MEDS: Isosorbide Dinitrate 5 MG TAB PO SCH ×3 (08:43→21:30)
[2020-09-18] MEDS: Clopidogrel Bisulfate 75 MG TAB PO SCH (08:43)
[2020-09-18] MEDS: Sodium Chloride 0.9% 1,000 ML IV SCH (08:43)
[2020-09-18] MEDS: hydrALAZINE 25 MG TAB PO SCH ×3 (08:44→21:30)
[2020-09-18] MEDS: Trospium 20 MG TAB PO SCH ×2 (08:44→21:31)
[2020-09-18] MEDS: NIFEdipine XL 30 MG TAB PO SCH ×2 (08:44→21:31)
[2020-09-18] MEDS: Aspirin Chewable 81 MG TAB PO SCH (08:44)
[2020-09-18] MEDS ORDERED: ADENOSINE 60 MG/20 ML VIAL ONE (09:14)
[2020-09-18] MEDS: Acetaminophen 500 MG TAB PO PRN (12:35)
[2020-09-18] MEDS: cefTRIAXone\\ROCEPHIN 1 GM in Sodium Chloride 0.9% 100 ML IVPB SCH (14:54)
[2020-09-18] MEDS: Rosuvastatin 20 MG TAB PO SCH (21:29)
[2020-09-19] MEDS: Sodium Chloride 0.9% 1,000 ML IV SCH ×2 (01:50→11:54)
[2020-09-19 04:43] LABS: #Eosinphils 0.3 thou/uL (0.0-0.7); #Lymphocytes 1.5 thou/uL (1.20-3.40); #Monocytes 0.7 thou/uL (0.11-0.59); #Neutrophils 4.5 thou/uL (1.40-6.50); %Basophils 0.4 % (0.0-1.0); %Eosinophils 3.7 % (0.0-10.0); %Lymphocytes 21.8 % (21.0-51.0); %Monocytes 9.9 % (0.0-10.0); %Neutrophils 64.3 % (42.0-75.0); Hemoglobin 9.4 g/dL (12.0-16.0); Mean Corpuscular Hemoglobin 33.5 pg (27.0-31.0); Mean Corpuscular Volume 95.5 fL (78.0-98.0); Mean Platelet Volume 7.2 fL (7.4-10.4); Platelet Count 263 thou/uL (130-400); RBC Distribution Width 14.1 % (11.5-14.5); Red Blood Cell (RBC) Count 2.81 mill/uL (4.20-5.40)
[2020-09-19 04:58] LABS: Anion Gap 16 mmol/L (10-20); BUN (Urea Nitrogen) 25 mg/dL (9.8-20.1); Calc. Creatinine Clearance 21 mL/min (70-130); Carbon Dioxide 17 mmol/L (23-31); Chloride 105 mmol/L (98-107); Glucose 109 mg/dL (83-110); Potassium 3.7 mmol/L (3.5-5.1); Sodium 134 mmol/L (136-145)
[2020-09-19] MEDS: Allopurinol 100 MG TAB PO SCH (08:57)
[2020-09-19] MEDS: hydrALAZINE 25 MG TAB PO SCH (08:57)
[2020-09-19] MEDS: Isosorbide Dinitrate 5 MG TAB PO SCH (08:57)
[2020-09-19] MEDS: NIFEdipine XL 30 MG TAB PO SCH (08:57)
[2020-09-19] MEDS: Trospium 20 MG TAB PO SCH (08:57)
[2020-09-19] MEDS: Famotidine 20 MG TAB PO SCH (08:57)
[2020-09-19] MEDS: Aspirin Chewable 81 MG TAB PO SCH (08:58)
[2020-09-19] MEDS: Clopidogrel Bisulfate 75 MG TAB PO SCH (08:58)
[2020-09-19 11:54] VITALS: BP 129/80; TEMP 98.5
== END 2020-09-19 14:45 | disposition home health service (06) | DRG 690 ==
LOC: ERS 08:36 → INTOOBSV 11:48 → ERHOLD 11:48 → 2SW 15:29 → OBSVTOIN 09-16 11:40 → 2NO 09-17 22:20
PROVIDERS: ADMIT Family Medicine; ATTEND Internal Medicine
DX: N30.90 Cystitis, unspecified without hematuria (principal); I69.351 Hemiplegia and hemiparesis following cerebral infarction affecting right dominant side; N17.9 Acute kidney failure, unspecified; R07.89 Other chest pain; I71.4 Abdominal aortic aneurysm, without rupture; I12.9 Hypertensive chronic kidney disease with stage 1 through stage 4 chronic kidney disease, or unspecified chronic kidney disease; N28.89 Other specified disorders of kidney and ureter; N18.30 Chronic kidney disease, stage 3 unspecified; B96.4 Proteus (mirabilis) (morganii) as the cause of diseases classified elsewhere; I25.10 Atherosclerotic heart disease of native coronary artery without angina pectoris; F32.9 Major depressive disorder, single episode, unspecified; D63.1 Anemia in chronic kidney disease; E78.5 Hyperlipidemia, unspecified; Z98.51 Tubal ligation status; Z79.02 Long term (current) use of antithrombotics/antiplatelets; Z79.82 Long term (current) use of aspirin; Z79.899 Other long term (current) drug therapy
CPT/HCPCS: 36415; 71045; 71275; 74174; 74176; 78452; 80048; 80053; 80061; 81001; 84484; 85025; 87077; 87086; 87186; 93005; 93017; 94760; 96374; 96375; A9500; G0378; J0153; J0360; J0696; J2270; J2405; J3490; Q9967

== ENCOUNTER 2021-03-15 08:19 | Day surgery (SDC) | payer MEDICARE, MEDICAID ==
[2021-03-15 08:41] LABS: #Eosinphils 0.3 thou/uL (0.0-0.7); #Lymphocytes 2.2 thou/uL (1.20-3.40); #Monocytes 0.7 thou/uL (0.11-0.59); #Neutrophils 4.5 thou/uL (1.40-6.50); %Basophils 0.5 % (0.0-1.0); %Eosinophils 3.4 % (0.0-10.0); %Lymphocytes 28.3 % (21.0-51.0); %Monocytes 8.9 % (0.0-10.0); %Neutrophils 58.8 % (42.0-75.0); Hemoglobin 11.5 g/dL (12.0-16.0); Mean Corpuscular HGB CONC 32.5 g/dL (32.0-36.0); Mean Corpuscular Hemoglobin 31.6 pg (27.0-31.0); Mean Corpuscular Volume 96.9 fL (78.0-98.0); Mean Platelet Volume 6.4 fL (7.4-10.4); Platelet Count 341 thou/uL (130-400); RBC Distribution Width 11.4 % (11.5-14.5); Red Blood Cell (RBC) Count 3.63 mill/uL (4.20-5.40); White Blood Cell (WBC) Count 7.7 thou/uL (4.8-10.8)
[2021-03-15 08:56] LABS: PTT 33.8 sec (22.9-36.1)
[2021-03-15] MEDS ORDERED: Fentanyl 100 MCG/2 ML VIAL ONE (09:42)
[2021-03-15] MEDS ORDERED: Midazolam HCl 2 mg/2 ml Vial ONE (09:43)
[2021-03-15 10:02] VITALS: BP 171/80; TEMP 98.5
[2021-03-15 10:05] VITALS: BMI 21.2
== END 2021-03-15 12:45 | disposition home or self-care (01) ==
LOC: CT 08:19
PROVIDERS: ATTEND Urology
PROC: 0T9B30Z Drainage of Bladder with Drainage Device, Percutaneous Approach (ICD-10-PCS; principal; 2021-03-15)
DX: R33.9 Retention of urine, unspecified (principal); Z79.2 Long term (current) use of antibiotics; Z79.899 Other long term (current) drug therapy
CPT/HCPCS: 51102; 77002; 85025; 85610; 85730; C2627; 36415; J2250; J3010

== ENCOUNTER 2023-04-16 14:34 | Emergency (ER) | payer MEDICARE, MEDICAID ==
[2023-04-16 15:49] LABS: #Basophils 0.1 thou/uL (0.0-0.2); #Eosinphils 0.1 thou/uL (0.0-0.7); #Monocytes 0.6 thou/uL (0.11-0.59); #Neutrophils 9.2 thou/uL (1.40-6.50); %Basophils 0.5 % (0.0-1.0); %Eosinophils 0.5 % (0.0-10.0); %Lymphocytes 9.6 % (21.0-51.0); %Monocytes 5.2 % (0.0-10.0); %Neutrophils 83.8 % (42.0-75.0); Hematocrit 35.1 % (36.0-47.0); Hemoglobin 11.5 g/dL (12.0-16.0); Mean Corpuscular HGB CONC 32.8 g/dL (32.0-36.0); Mean Corpuscular Hemoglobin 31.3 pg (27.0-31.0); Mean Corpuscular Volume 95.4 fl (78.0-98.0); Mean Platelet Volume 9.5 fL (7.4-10.4); Platelet Count 384 10x3/uL (130-400); RBC Distribution Width 12.7 % (11.5-14.5); Red Blood Cell (RBC) Count 3.68 mill/uL (4.20-5.40); White Blood Cell (WBC) Count 10.9 10x3/uL (4.8-10.8)
[2023-04-16 15:57] LABS: Bacteria/HPF 2+ HPF (None Seen); Bilirubin Negative (Negative); Blood, Urine Negative (Negative); CAUTI Indications for Culture Alt mental st,lethar; Clarity Extra Turbid (Clear); Glucose, Urine (Dipstick) Normal (Negative); Ketone, Urine Negative (Negative); Leukocyte 500 Leu/uL (Negative); Nitrite Negative (Negative); Protein, Urine (Dipstick) 50 mg/dL (Neg-Trace); RBC/HPF 0-3 HPF (0-3); Specific Gravity, Urine 1.007 (1.002-1.036); Squamous Epithelial None Seen HPF (0-3); Urobilinogen Normal mg/dL (Less than 2); WBC/HPF Greater than 50 HPF (0-3)
[2023-04-16 16:00] LABS: Urine Culture Reflex Yes Yes
[2023-04-16 16:09] LABS: ALT (SGPT) Less than 7 U/L (8-55); AST (SGOT) 12 U/L (5-34); Albumin 3.8 g/dL (3.4-4.8); Alkaline Phosphatase 82 U/L (40-110); Anion Gap 17 mmol/L (10-20); BUN (Urea Nitrogen) 47 mg/dL (9.8-20.1); Bilirubin, Total 0.2 mg/dL (0.2-1.2); Calc. Creatinine Clearance 0 mL/min (70-130); Calcium 9.6 mg/dL (7.8-10.44); Carbon Dioxide 19 mmol/L (23-31); Chloride 107 mmol/L (98-107); Estimated GFR 22; Globulin 3.9 g/dL (2.4-3.5); Glucose 146 mg/dL (83-110); Potassium 3.9 mmol/L (3.5-5.1); Protein, Total 7.7 g/dL (5.8-8.1); Sodium 139 mmol/L (136-145)
== END 2023-04-16 17:55 | disposition home or self-care (01) ==
LOC: ERS 14:34
DX: N39.0 Urinary tract infection, site not specified (principal); I10 Essential (primary) hypertension; E78.5 Hyperlipidemia, unspecified; Z87.891 Personal history of nicotine dependence; Z79.899 Other long term (current) drug therapy; Z79.01 Long term (current) use of anticoagulants
CPT/HCPCS: 36416; 74176; 80053; 81001; 84484; 85025; 87077; 87086; 87186; 93005

== ENCOUNTER 2024-04-09 12:38 | Emergency (ER) | payer MEDICARE, MEDICAID ==
[2024-04-09] MEDS ORDERED: NIFEdipine XL 30 MG ER.TAB PO SCH (14:30)
== END 2024-04-09 16:30 | disposition home or self-care (01) ==
LOC: ERS 12:38
DX: I10 Essential (primary) hypertension (principal); M25.571 Pain in right ankle and joints of right foot; Z55.0 Illiteracy and low-level literacy; Z87.891 Personal history of nicotine dependence
CPT/HCPCS: 96374